=== PATIENT | male | born 1970 | race Caucasian/White ===

== ENCOUNTER 2018-06-08 10:11 | Emergency (ER) | payer OTHER ==
[2018-06-08] MEDS ORDERED: Tetan/Diph/Pertus SYR(Tdap)* 0.5 ML SYR(BOOSTRIX) use SYR IM ONE (10:50)
--- NOTE | 2018-06-08 10:50 | UC ---
Laceration HPI - HPI Summary HPI Summary: 47 y/o male presents to the urgent care c/o left hand palm laceration over below his thumb with a razor at work around 1 hrs ago. Pt reports the use soem pole with razor to remove floor wax. He was handling them and some how cut his left hand. Bleeding stopped with pressure. Pt doesn't recalled when was the last Tetanus vaccine. He is sure it was more than 5 years ago. Pt can move thumb w/o any difficulty. Pain is 3/10. Pt denies numbness or tingling sensation over the left hand, SOB, chest pain, abdominal pain,N/v/d. - History Of Current Complaint Chief Complaint: UCLaceration Stated Complaint: HAND LAC Time Seen by Provider: 06/08/18 10:49 Hx Obtained From: Patient Laceration Location: Hand - left palm laceration with a razor Mechanism Of Injury: Sharp Trauma Onset/Duration: Sudden Onset, Lasting Hours - 1 hr ago Severity: Mild Pain Intensity: 3 Pain Scale Used: 0-10 Numeric Aggravating Factors: Movement, Other: - touch Related History: Dominant Hand Right - Allergies/Home Medications Allergies/Adverse Reactions: Allergies Allergy/AdvReac Type Severity Reaction Status Date / Time No Known Allergies Allergy Verified 06/08/18 10:26 Home Medications: Home Medications Atorvastatin* [Lipitor 20 MG*] 20 mg PO DAILY 06/08/18 [History Confirmed ] Lisinopril/HCTZ 20/12.5(NF) [Zestoretic 20/12.5(NF)] 1 tab PO DAILY 06/08/18 [ History Confirmed 06/08/18] Metformin ER (NF) [Glucophage ER 750 MG TAB (NF)] 750 mg PO DAILY 06/08/18 [ History Confirmed 06/08/18] PMH/Surg Hx/FS Hx/Imm Hx Previously Healthy: Yes Endocrine History: Diabetes Cardiovascular History: Hypertension - Surgical History Surgical History: None - Family History Known Family History: Positive: Cardiac Disease, Hypertension - Social History Occupation: Employed Full-time Lives: With Family Alcohol Use: None Substance Use Type: None Smoking Status (MU): Never Smoked Tobacco - Immunization History Hx Tetanus, Diphtheria Vaccination: No - more than 5 years ago Review of Systems All Other Systems Reviewed And Are Negative: Yes Constitutional: Positive: Negative Skin: Positive: Other - laceration on the left palm w/ a razor at work Eyes: Positive: Negative ENT: Positive: Negative Respiratory: Positive: Negative Cardiovascular: Positive: Negative Gastrointestinal: Positive: Negative Genitourinary: Positive: Negative Motor: Positive: Negative Neurovascular: Positive: Negative Musculoskeletal: Positive: Other: - left hand pain s/p laceration with a razor Neurological: Positive: Negative Psychological: Positive: Negative Is Patient Immunocompromised?: No Physical Exam - Summary Physical Exam Summary: Vital Signs Reviewed: Yes General: well developed, well nourished male sitting in the examining table w/o any apparent distress Eye Exam: Normal Eyes: Positive: Conjunctiva Clear - PERRLA, EOMI, fundi grossly normal ENT: Positive: Normal ENT inspection, Hearing grossly normal, Pharynx normal, TMs normal Neck: Positive: Supple, Nontender, No Lymphadenopathy Respiratory: Positive: Chest non-tender, Lungs clear, Normal breath sounds, No respiratory distress Cardiovascular: Positive: RRR, No Murmur, Pulses Normal, Brisk Capillary Refill Abdomen Description: Positive: Nontender, No Organomegaly, Soft. Negative: CVA Tenderness (R), CVA Tenderness (L) Bowel Sounds: Positive: Present Musculoskeletal: Positive: Strength Intact, ROM Intact, No Edema Neurological: Positive: Alert, Muscle Tone Normal Psychological Exam: Normal Skin: Positive: Left thenar eminence w/ a linear superficial laceration about 1.8cm in size, non bleeding, no foreign body observed. mild tenderness to palpation, no ecchymosis around hand . FROM of LF hand and fingers , sensation intact, capillary refill brisk, and pulses WNL. Triage Information Reviewed: Yes Vital Signs: Initial Vital Signs Temp 98 F 06/08/18 10:23 Pulse 81 06/08/18 10:23 Resp 18 06/08/18 10:23 BP 154/100 06/08/18 10:23 Pulse Ox 100 06/08/18 10:23 Laceration Repair - Laceration Repair 1 Description: Linear Laceration Size After Repair: Length (cm) - 1.8cm Modified For Repair: Yes Cleansing Completed Via Routine Prep: Yes Irrigation With Pressure Irrigation Device: Yes Closure Material: Skin Adhesive, SteriStrips - 3 Closure Method: Single Layer Suture Of: Skin Laceration Course/Dx - Course/Dx Course Of Treatment: 47 y/o male presents to the urgent care c/o left hand palm laceration over below his thumb with a razor at work around 1 hrs ago. Pt reports the use soem pole with razor to remove floor wax. He was handling them and some how cut his left hand. Bleeding stopped with pressure. Pt doesn't recalled when was the last Tetanus vaccine. He is sure it was more than 5 years ago. Pt can move thumb w/o any difficulty. Pain is 3/10. Pt denies numbness or tingling sensation over the left hand, SOB, chest pain, abdominal pain,N/v/d. Hx obtained. LACERATION PROCEDURE NOTE: . Copious irrigation was done with saline and the wound explored. There was no FB or deep structure injury noted. wound cleaned w/ Iodine swabs. No need for futures since laceration is superficial only involving skin. Laceration closed w/ skin adhesive and 3 steri- strips. Wound dressed w/ sterile gauze.The Pt tolerated the procedure well without adverse effects. Neurovascular intact and FROM of all left finger. Tdap ordered and applied by nurse. Pt advised if any signs of infection develop to immediately return to the urgent care of PCP for further management and treatment. Pt's BP is elevated today advised to decrease salt in diet, monitor BP and f/u with PCP for further management. Pt understood and agreed and left the clinic ambulating A&Ox3. Pt w/ Left thenar eminence w/ a linear superficial laceration about 1.8cm in size, non bleeding, no foreign body observed. - Differential Dx - Laceration/Wound Differental Diagnoses: Abrasion, Dehiscence, Laceration, Puncture Wound, Suture Removal, Tendon Laceration - Diagnosis Provider Diagnosis: Superficial laceration of left hand, Uncontrolled hypertension Discharge - Sign-Out/Discharge Documenting (check all that apply): Patient Departure - d/c home All imaging exams completed and their final reports reviewed: No Studies - Discharge Plan Condition: Stable Disposition: HOME Prescriptions: Bacitracin OINTMENT* 1 applic TOPICAL BID #1 tube Patient Education Materials: Low-Sodium Diet (ED), Skin Adhesive Care (ED) Referrals: Kurtis Murphy MD [Primary Care Provider] - 1 Week Additional Instructions: 1-Please apply topical antibiotic over the wound after steri-strips come off. Keep wound clean and dry 2- Take Ibuprofen or Tylenol PO q6-8hrs prn for pain or swelling. 3- If you develop fever or redness around your wound please return to the Urgent care or f/u with your PCP for further management 4- Your BP is elevated today. please decrease salt in your diet, monitor BP and if it continues to be elevated please f/u with your PCP for further management. - Billing Disposition and Condition Condition: STABLE Disposition: Home - Attestation Statements Provider Attestation: I was available for consult. This patient was seen by the BARBI. The patient was not presented to, seen by, or examined by me. -Odette
== END 2018-06-08 11:47 | disposition home or self-care (01) ==
LOC: UCEAST 10:11
DX: S61.412A Laceration without foreign body of left hand, initial encounter (principal); I10 Essential (primary) hypertension; E11.9 Type 2 diabetes mellitus without complications; Z79.899 Other long term (current) drug therapy; W45.8XXA Other foreign body or object entering through skin, initial encounter; Y92.9 Unspecified place or not applicable; Y99.0 Civilian activity done for income or pay
CPT/HCPCS: 90715; 96372; 99202; G0463